=== PATIENT | male | born 1980 | race Caucasian/White ===

== ENCOUNTER 2017-05-04 10:33 | Emergency (ER) | payer OTHER ==
--- NOTE | 2017-05-04 10:52 | EDM.PDOC ---
ED HPI GENERAL MEDICAL PROBLEM - General Chief Complaint: Back Pain or Injury Stated Complaint: BACK PAIN Time Seen by Provider: 05/04/17 10:48 Source of Information: Reports: Patient History Limitations: Reports: No Limitations - History of Present Illness INITIAL COMMENTS - FREE TEXT/NARRATIVE: History of present illness: [36-year-old male comes in complaining of acute back pain. Patient does have a history of back issues that he has had conservative treatment for but now he is unable to sit, standing is painful and patient is having difficulty laying still.] Review of systems: As per history of present illness and below otherwise all systems reviewed and negative. Past medical history: As per history of present illness and as reviewed below otherwise noncontributory. Surgical history: As per history of present illness and as reviewed below otherwise noncontributory. Social history: No reported history of drug or alcohol abuse. Family history: As per history of present illness and as reviewed below otherwise noncontributory. Physical exam: HEENT: Atraumatic, normocephalic, pupils reactive, negative for conjunctival pallor or scleral icterus, mucous membranes moist, throat clear, neck supple, nontender, trachea midline. Lungs: Clear to auscultation, breath sounds equal bilaterally, chest nontender. Heart: S1S2, regular, negative for clicks, rubs, or JVD. Abdomen: Soft, nondistended, nontender. Negative for masses or hepatosplenomegaly. Negative for costovertebral tenderness. Pelvis: Stable nontender. Genitourinary: Deferred. Rectal: Deferred. Extremities: Atraumatic, negative for cords or calf pain. Neurovascular unremarkable. Neuro: Awake, alert, oriented. Cranial nerves II through XII unremarkable. Cerebellum unremarkable. Patient with significant voluntary guarding in the lower back unable to achieve a position of comfort. Patient indicates that he is having some level of radiculopathy down his left leg onto the top of his left foot. Patient indicates he has a known history of disc issues and was seen approximately a year ago here for back pain and problems he obtained resolution and has not had trouble since in the last 12 months. Now he indicates that the pain is worse than it ever been before and it slightly different. Patient declined further diagnostic studies such as x-rays today because of lack of insurance indicated his new insurance will start in June with his new job. Diagnostics: [] Therapeutics: [Toradol, Zofran, Dilaudid, gabapentin] Impression: [Back pain] Plan: [Gabapentin with brief run of Vicodin at bedtime] Definitive disposition and diagnosis as appropriate pending reevaluation and review of above. Back Pain Score (Numeric/FACES): 10 - Related Data Allergies Allergy/AdvReac Type Severity Reaction Status Date / Time No Known Allergies Allergy Verified 11/17/15 14:13 Home Meds: Home Meds Sertraline [Zoloft] 50 mg PO DAILY 09/06/15 [History] Cyclobenzaprine [Flexeril] 10 mg PO TID PRN #30 tablet 05/12/16 [Rx] Hydrocodone/Acetaminophen [Lortab 5-325 mg Tablet] 1 each PO Q6HR PRN #12 tablet 05/12/16 [Rx] Prednisone [IJD: predniSONE] 20 mg PO BID #10 tab 05/12/16 [Rx] Gabapentin [Neurontin] 300 mg PO TID #90 cap 05/04/17 [Rx] Past Medical History HEENT History: Reports: None Cardiovascular History: Reports: None Respiratory History: Reports: None Gastrointestinal History: Reports: None Genitourinary History: Reports: None Musculoskeletal History: Reports: None Neurological History: Reports: None Psychiatric History: Reports: Anxiety Endocrine/Metabolic History: Reports: None Hematologic History: Reports: None Immunologic History: Reports: None Oncologic (Cancer) History: Reports: None Dermatologic History: Reports: None - Infectious Disease History Infectious Disease History: Reports: None - Past Surgical History Musculoskeletal Surgical History: Reports: Other (See Below) Social & Family History - Family History Family Medical History: Noncontributory - Tobacco Use Smoking Status *Q: Former Smoker Second Hand Smoke Exposure: No - Caffeine Use Caffeine Use: Reports: Coffee - Recreational Drug Use Recreational Drug Use: No ED ROS GENERAL - Review of Systems Review Of Systems: See Below (See history of present illness) ED EXAM, GENERAL - Physical Exam Exam: See Below (See history of present illness) Course - Vital Signs Last Recorded V/S: Last Vital Signs Temp 36.4 C 05/04/17 10:46 Pulse 82 05/04/17 10:46 Resp 18 05/04/17 10:46 BP 124/81 05/04/17 10:46 Pulse Ox 96 05/04/17 10:46 - Orders/Labs/Meds Orders: Active Orders 24 hr Category Date Time Status Lumbar Spine 2 or 3V [CR] Stat Exams 05/04/17 12:24 Stop Req Orphenadrine [Norflex] Med 05/04/17 11:00 Active 60 mg IM Q12H Saline Lock Insert [OM.PC] Stat Oth 05/04/17 10:53 Ordered Medication Orders Orphenadrine Citrate (Norflex) 60 mg IM Q12H RITA Last Admin: 05/04/17 11:11 Dose: 60 mg Meds: Medications Generic Name Dose Route Start Last Admin Trade Name Freq PRN Reason Stop Dose Admin Orphenadrine Citrate 60 mg 05/04/17 11:00 05/04/17 11:11 Norflex IM 60 mg Q12H RITA Administration Discontinued Medications Generic Name Dose Route Start Last Admin Trade Name Freq PRN Reason Stop Dose Admin Gabapentin 300 mg 05/04/17 12:49 Neurontin PO 05/04/17 12:50 ONETIME ONE Hydromorphone HCl 1 mg 05/04/17 11:28 05/04/17 11:45 Dilaudid IVPUSH 05/04/17 11:29 1 mg ONETIME ONE Administration Hydromorphone HCl 1 mg 05/04/17 12:24 05/04/17 12:42 Dilaudid IVPUSH 05/04/17 12:25 1 mg ONETIME ONE Administration Ketorolac Tromethamine 30 mg 05/04/17 10:53 05/04/17 11:10 Toradol IVPUSH 05/04/17 10:54 30 mg ONETIME ONE Administration Lorazepam 1 mg 05/04/17 11:28 05/04/17 11:46 Ativan IVPUSH 05/04/17 11:29 1 mg ONETIME ONE Administration Ondansetron HCl 4 mg 05/04/17 10:54 05/04/17 11:11 Zofran IVPUSH 05/04/17 10:55 4 mg ONETIME ONE Administration Ondansetron HCl 4 mg 05/04/17 12:24 05/04/17 12:41 Zofran IVPUSH 05/04/17 12:25 4 mg ONETIME ONE Administration Departure - Departure Time of Disposition: 13:13 Disposition: Home, Self-Care 01 Condition: Good Clinical Impression: Low back pain Qualifiers: Chronicity: acute Back pain laterality: bilateral Sciatica presence: with sciatica Sciatica laterality: sciatica of left side Qualified Code(s): M54.42 - Lumbago with sciatica, left side - Discharge Information Prescriptions: Gabapentin [Neurontin] 300 mg PO TID #90 cap Referrals: PCP,None [Primary Care Provider] - Forms: ED Department Discharge Additional Instructions: The following information is given to patients seen in the emergency department who are being discharged to home. This information is to outline your options for follow-up care. We provide all patients seen in our emergency department with a follow-up referral. The need for follow-up, as well as the timing and circumstances, are variable depending upon the specifics of your emergency department visit. If you don't have a primary care physician on staff, we will provide you with a referral. We always advise you to contact your personal physician following an emergency department visit to inform them of the circumstance of the visit and for follow-up with them and/or the need for any referrals to a consulting specialist. The emergency department will also refer you to a specialist when appropriate. This referral assures that you have the opportunity for follow-up care with a specialist. All of these measure are taken in an effort to provide you with optimal care, which includes your follow-up. Under all circumstances we always encourage you to contact your private physician who remains a resource for coordinating your care. When calling for follow-up care, please make the office aware that this follow-up is from your recent emergency room visit. If for any reason you are refused follow-up, please contact the [facility] Emergency Department at and asked to speak to the emergency department charge nurse. Take medication as directed Follow-up with the primary care provider as discussed Return to ED as needed as discussed [facility] [address] [place] [id number] - My Orders Last 24 Hours: My Active Orders 05/04/17 10:53 Saline Lock Insert [OM.PC] Stat 05/04/17 11:00 Orphenadrine [Norflex] 60 mg IM Q12H 05/04/17 12:24 Lumbar Spine 2 or 3V [CR] Stat - Assessment/Plan Last 24 Hours: My Active Orders 05/04/17 10:53 Saline Lock Insert [OM.PC] Stat 05/04/17 11:00 Orphenadrine [Norflex] 60 mg IM Q12H 05/04/17 12:24 Lumbar Spine 2 or 3V [CR] Stat
[2017-05-04] MEDS ORDERED: Ketorolac 30 MG/ML SDV IVPUSH ONE (10:53)
[2017-05-04] MEDS ORDERED: Ondansetron 4 MG/2 ML SDV IVPUSH ONE ×2 (10:54→12:24)
[2017-05-04] MEDS ORDERED: LORazepam 2 MG/ML SDV IVPUSH ONE (11:28)
[2017-05-04] MEDS ORDERED: HYDROmorphone 2 MG/ML Syringe IVPUSH ONE ×2 (11:28→12:24)
[2017-05-04] MEDS ORDERED: Gabapentin 300 MG Cap PO ONE (12:49)
[2017-05-04 14:39] VITALS: BP 125/89
== END 2017-05-04 14:35 | disposition home or self-care (01) ==
LOC: MW.ED 10:33
DX: M54.42 Lumbago with sciatica, left side (principal); Z79.899 Other long term (current) drug therapy; Z87.891 Personal history of nicotine dependence
CPT/HCPCS: 81001; 96372; 96374; 96375; 96376; 99283; A9270; J1170; J1885; J2060; J2360; J2405; 99284

== ENCOUNTER 2017-12-12 06:58 | Observation (INO) | payer OTHER ==
[2017-12-12] MEDS ORDERED: Cyclobenzaprine 10 MG Tab PO ONE (07:24)
[2017-12-12] MEDS ORDERED: HYDROmorphone 2 MG/ML SDV IM ONE ×2 (07:24→09:04)
[2017-12-12] MEDS ORDERED: HYDROmorphone 1 MG/ML Syringe IM ONE (07:30)
--- NOTE | 2017-12-12 08:03 | EDM.PDOC ---
ED HPI GENERAL MEDICAL PROBLEM - General Chief Complaint: Back Pain or Injury Stated Complaint: BACK PAIN Time Seen by Provider: 12/12/17 07:01 Source of Information: Reports: Patient History Limitations: Reports: No Limitations - History of Present Illness INITIAL COMMENTS - FREE TEXT/NARRATIVE: History of present illness: []Patient has had back pain since 2009, he has had intermittent flares and this morning he was getting out of his office chair and had severe pain like he was hit the back with a baseball bat with pain radiating down his left leg into his foot. He states his foot feels like water pouring over it. Patient had an epidural last week in [place] for chronic low back pain. He's had several in the past but states they usually don't work but he wanted to try again because the pain was unrelenting. It has not given him any relief. Review of systems: As per history of present illness and below otherwise all systems reviewed and negative. Past medical history: As per history of present illness and as reviewed below otherwise noncontributory. Surgical history: As per history of present illness and as reviewed below otherwise noncontributory. Social history: No reported history of drug or alcohol abuse. Family history: As per history of present illness and as reviewed below otherwise noncontributory. Physical exam: General: Well developed, well nourished in NAD HEENT: Atraumatic, normocephalic, pupils reactive, negative for conjunctival pallor or scleral icterus, mucous membranes moist, throat clear, neck supple, nontender, trachea midline. Lungs: Clear to auscultation, breath sounds equal bilaterally, chest nontender. Heart: S1S2, regular, negative for clicks, rubs, or JVD. Abdomen: Soft, nondistended, nontender. Negative for masses or hepatosplenomegaly. Negative for costovertebral tenderness. Pelvis: Stable nontender. Genitourinary: Deferred. Rectal: Deferred. Extremities: Atraumatic, negative for cords or calf pain. Neurovascular unremarkable. Neuro: Awake, alert, oriented. Cranial nerves II through XII unremarkable. Cerebellum unremarkable. Motor and sensory unremarkable throughout. Exam nonfocal. Left patellar reflex in tact, moves toes. Diagnostics: [] Therapeutics: []Morphine, Toradol, Flexeril, Dilaudid with minimal improvement, dexamethasone 1 dose given Impression: []Acute back pain with left-sided sciatica Plan: []Admit for pain control Dr. Yang he accepts, MRI has been ordered Definitive disposition and diagnosis as appropriate pending reevaluation and review of above. Left Low Back Pain Score (Numeric/FACES): 10 - Related Data Allergies Allergy/AdvReac Type Severity Reaction Status Date / Time No Known Allergies Allergy Verified 12/12/17 10:44 Home Meds: Home Meds Sertraline [Zoloft] 50 mg PO BEDTIME 09/06/15 [History] Cyclobenzaprine [Flexeril] 10 mg PO TID PRN #30 tablet 05/12/16 [Rx] Diazepam [Valium] 5 mg PO DAILY PRN 12/12/17 [History] Past Medical History HEENT History: Reports: None Cardiovascular History: Reports: None Respiratory History: Reports: None Gastrointestinal History: Reports: None Genitourinary History: Reports: None Musculoskeletal History: Reports: Back Pain, Chronic Neurological History: Reports: None Psychiatric History: Reports: Anxiety Endocrine/Metabolic History: Reports: None Hematologic History: Reports: None Immunologic History: Reports: None Oncologic (Cancer) History: Reports: None Dermatologic History: Reports: None - Infectious Disease History Infectious Disease History: Reports: None - Past Surgical History Musculoskeletal Surgical History: Reports: Other (See Below) Social & Family History - Family History Family Medical History: Noncontributory - Tobacco Use Smoking Status *Q: Never Smoker - Caffeine Use Caffeine Use: Reports: None - Recreational Drug Use Recreational Drug Use: No ED ROS GENERAL - Review of Systems Review Of Systems: See Below (See history of present illness) ED EXAM,LOWER BACK PAIN/INJURY - Physical Exam Exam: See Below (See history of present illness) Course - Vital Signs Last Recorded V/S: Last Vital Signs Temp 96.7 F 12/12/17 10:11 Pulse 94 12/12/17 10:11 Resp 16 12/12/17 10:11 BP 127/76 12/12/17 10:11 Pulse Ox 93 L 12/12/17 10:11 - Orders/Labs/Meds Orders: Active Orders 24 hr Category Date Time Status Sodium Chloride 0.9% [Saline Flush] Med 12/12/17 08:04 Active 10 ml FLUSH ASDIRECTED PRN Sodium Chloride 0.9% [Saline Flush] Med 12/12/17 08:04 Active 2.5 ml FLUSH ASDIRECTED PRN Saline Lock Insert [OM.PC] Stat Oth 12/12/17 08:03 Ordered Medication Orders Sodium Chloride (Saline Flush) 10 ml FLUSH ASDIRECTED PRN PRN Reason: Keep Vein Open Last Admin: 12/12/17 08:17 Dose: 10 ml Sodium Chloride (Saline Flush) 2.5 ml FLUSH ASDIRECTED PRN PRN Reason: Keep Vein Open Last Admin: 12/12/17 08:17 Dose: 2.5 ml Meds: Medications Generic Name Dose Route Start Last Admin Trade Name Freq PRN Reason Stop Dose Admin Sodium Chloride 10 ml 12/12/17 08:04 12/12/17 08:17 Saline Flush FLUSH 10 ml ASDIRECTED PRN Administration Keep Vein Open Sodium Chloride 2.5 ml 12/12/17 08:04 12/12/17 08:17 Saline Flush FLUSH 2.5 ml ASDIRECTED PRN Administration Keep Vein Open Discontinued Medications Generic Name Dose Route Start Last Admin Trade Name Freq PRN Reason Stop Dose Admin Cyclobenzaprine HCl 10 mg 12/12/17 07:24 12/12/17 07:39 Flexeril PO 12/12/17 07:25 10 mg ONETIME ONE Administration Dexamethasone 10 mg 12/12/17 09:04 12/12/17 09:14 Dexamethasone IVPUSH 12/12/17 09:05 10 mg ONETIME ONE Administration Diazepam 5 mg 12/12/17 08:04 12/12/17 08:15 Valium IV 12/12/17 08:05 5 mg ONETIME ONE Administration Hydromorphone HCl 1 mg 12/12/17 07:24 12/12/17 07:39 Dilaudid IM 12/12/17 07:25 Not Given ONETIME ONE Hydromorphone HCl 1 mg 12/12/17 07:30 12/12/17 07:38 Dilaudid IM 12/12/17 07:31 1 mg ONETIME ONE Administration Hydromorphone HCl 1 mg 12/12/17 09:04 12/12/17 09:14 Dilaudid IM 12/12/17 09:05 Not Given ONETIME ONE Hydromorphone HCl 1 mg 12/12/17 09:06 12/12/17 09:14 Dilaudid IVPUSH 12/12/17 09:07 1 mg ONETIME ONE Administration Ketorolac Tromethamine 30 mg 12/12/17 09:04 12/12/17 09:14 Toradol IVPUSH 12/12/17 09:05 30 mg ONETIME ONE Administration Morphine Sulfate 4 mg 12/12/17 08:04 Morphine IVPUSH 12/12/17 23:59 Q2H PRN Pain Morphine Sulfate Confirm 12/12/17 08:11 12/12/17 08:16 Morphine Administered 12/12/17 08:12 Not Given Dose 4 mg .ROUTE .STK-MED ONE Morphine Sulfate 4 mg 12/12/17 08:15 12/12/17 08:16 Morphine IVPUSH 12/12/17 08:16 4 mg ONETIME ONE Administration Morphine Sulfate 4 mg 12/12/17 09:00 12/12/17 09:06 Morphine IVPUSH 12/12/17 09:01 Not Given ONETIME ONE Departure - Departure Time of Disposition: 10:30 Disposition: Refer to Observation Condition: Fair Clinical Impression: Acute left-sided back pain with sciatica - Discharge Information - My Orders Last 24 Hours: My Active Orders 12/12/17 08:03 Saline Lock Insert [OM.PC] Stat 12/12/17 08:04 Sodium Chloride 0.9% [Saline Flush] 10 ml FLUSH ASDIRECTED PRN Sodium Chloride 0.9% [Saline Flush] 2.5 ml FLUSH ASDIRECTED PRN - Assessment/Plan Last 24 Hours: My Active Orders 12/12/17 08:03 Saline Lock Insert [OM.PC] Stat 12/12/17 08:04 Sodium Chloride 0.9% [Saline Flush] 10 ml FLUSH ASDIRECTED PRN Sodium Chloride 0.9% [Saline Flush] 2.5 ml FLUSH ASDIRECTED PRN
[2017-12-12] MEDS ORDERED: Sodium Chloride 0.9% 2.5 ML Syringe FLUSH PRN (08:04)
[2017-12-12] MEDS ORDERED: Diazepam 5 MG/ML 10 ML Vial MDV IV ONE (08:04)
[2017-12-12] MEDS ORDERED: Sodium Chloride 0.9% 10 ML Syringe FLUSH PRN (08:04)
[2017-12-12] MEDS ORDERED: Morphine 4 MG/ML Syringe IVPUSH PRN (08:04)
[2017-12-12] MEDS ORDERED: Morphine 2 MG/ML Syringe ONE (08:11)
[2017-12-12] MEDS ORDERED: Morphine 2 MG/ML Syringe IVPUSH ONE ×2 (08:15→09:00)
[2017-12-12] MEDS ORDERED: Ketorolac 30 MG/ML SDV IVPUSH ONE (09:04)
[2017-12-12] MEDS ORDERED: Dexamethasone 10 MG/ML SDV IVPUSH ONE (09:04)
[2017-12-12] MEDS ORDERED: HYDROmorphone 1 MG/ML Syringe IVPUSH ONE (09:06)
--- NOTE | 2017-12-12 10:08 | MR ---
EXAMINATION: MRI lumbar spine without contrast HISTORY: Pain COMPARISON: None TECHNIQUE: Multiplanar and multisequence imaging obtained of the lumbar spine without contrast. Motio n artifact is noted due to pain. FINDINGS: The lumbar spinal alignment is normal. The vertebral body heights appear maintained. Mild e ndplate signal changes noted at L5-S1. There is no suspicious bone marrow signal. The visualized retr operitoneal structures are grossly unremarkable. SI joints are symmetric. T12-L4: Essentially unremarkable L4-L5: Minimal diffuse disc bulge without significant spinal canal or neural foraminal stenosis. L5-S1: Moderate diffuse disc bulge with an annular tear without significant spinal canal stenosis. Mo derate left and [id number] right neural foraminal stenosis. IMPRESSION: 1. Moderate diffuse disc bulge at L5-S1 with an annular tear. Moderate left and [id number] righ t neural foraminal stenosis.
[2017-12-12 10:27] VITALS: BP 127/76
[2017-12-12] MEDS ORDERED: Acetaminophen 325 MG Tab PO PRN (11:50)
[2017-12-12] MEDS ORDERED: Ondansetron 4 MG/2 ML SDV IVPUSH PRN (11:50)
--- NOTE | 2017-12-12 11:54 | PCM.HP ---
H&P History of Present Illness - General Date of Service: 12/12/17 Admit Problem/Dx: Admission Diagnosis/Problem Admission Diagnosis/Problem Sciatica of left side associated with disorder of lumbar spine Source of Information: Patient History Limitations: Reports: No Limitations - History of Present Illness Initial Comments - Free Text/Narative: This 37 year old male with pmh of chronic back pain with acute flares presented to the ED today with complaints of a acute back pain flare. He reports he was in [place] last week and received an epidural for his back pain. He has received a number of these in the past and they typically don't work well for him. He felt ok over the weekend and then went to work today. He was sitting in his chair, he moved to stand up and had instant pain in his low back shooting down the back of his left leg. He reports it was sudden and severe prompting him to come to the ED. He reports he typically takes Naproxen and Flexeril at home for acute flares and occassionally relies on Chitina when very severe. He also typically applies heat PRN. He was previously on Meloxicam which helped a lot, but his provider stopped this and he was unsure why. He reports "I take too much Naproxen a day to help the pain, I know that." He denies heartburn or abdominal pain. No black or bloody BMs. He reports Flexeril makes him nearly non -functional at work and would like to attempt a lower dose if possible, form the 10 mg TID. He denies any fevers, chills, URI symptoms. No palpitations or SOB. NO chest pain or abdominal pain. He reports some urine retention possibly, he reports feeling like he has to go but only a small amount comes out, no dysuria. Last BM was yesterday. No constipation. He denies tobacco use, recreational drug use and only social alcohol use, maybe once a month. He has seen multiple specialist since he started having chronic back pain after an injury in 2009. He has been to Physical therapy and pain management specialists as well. In the ED no labwork obtained. VS stable. He was given Dilaudid IM along with Toradol, Dexamethasone and Flexeril. MRI of lumbar spine revealed moderate diffuse disk bulge L5-S1 with annular tear along with moderate L and mild to moderate R neural foraminal stenosis. He will be admitted observation for acute on chronic low back pain, intractable pain. Left Low Back Pain Score (Numeric/FACES): 10 - Related Data Allergies/Adverse Reactions: Allergies Allergy/AdvReac Type Severity Reaction Status Date / Time No Known Allergies Allergy Verified 12/12/17 10:44 Home Medications: Home Meds Sertraline [Zoloft] 50 mg PO BEDTIME 09/06/15 [History] Cyclobenzaprine [Flexeril] 10 mg PO TID PRN #30 tablet 05/12/16 [Rx] Diazepam [Valium] 5 mg PO DAILY PRN 12/12/17 [History] Past Medical History HEENT History: Reports: None Cardiovascular History: Reports: None. Denies: Afib, Blood Clots/VTE/DVT, High Cholesterol, Hypertension Respiratory History: Reports: None. Denies: Asthma, COPD, SOB Gastrointestinal History: Reports: None. Denies: GERD, GI Bleed Genitourinary History: Reports: None. Denies: Chronic Renal Insuffiency, Urinary Incontinence Musculoskeletal History: Reports: Back Pain, Chronic Other Musculoskeletal History: Herniated disk L4, Herniated L5 (2009) Neurological History: Reports: None. Denies: CVA, Headaches, Chronic, Head Trauma, TIA Psychiatric History: Reports: Anxiety (intermittent, has Valium PRN) Endocrine/Metabolic History: Reports: None. Denies: Diabetes, Type II Hematologic History: Reports: None Immunologic History: Reports: None Oncologic (Cancer) History: Reports: None Dermatologic History: Reports: None Other Dermatologic History: Rosacea - Infectious Disease History Infectious Disease History: Reports: None - Past Surgical History Neurological Surgical History: Reports: None Musculoskeletal Surgical History: Reports: Other (See Below) Social & Family History - Family History Family Medical History: Noncontributory - Tobacco Use Smoking Status *Q: Never Smoker Second Hand Smoke Exposure: No - Caffeine Use Caffeine Use: Reports: None - Alcohol Use Alcohol Use Frequency: Rarely, Socially - Recreational Drug Use Recreational Drug Use: No - Living Situation & Occupation Living situation: Reports: Occupation: Employed H&P Review of Systems - Review of Systems: Review Of Systems: See Below General: Reports: No Symptoms. Denies: Fever, Chills, Malaise, Weakness, Fatigue HEENT: Reports: No Symptoms. Denies: Headaches, Sinus Congestion, Sore Throat, Vertigo Pulmonary: Reports: No Symptoms. Denies: Shortness of Breath Cardiovascular: Reports: No Symptoms. Denies: Chest Pain Gastrointestinal: Reports: No Symptoms. Denies: Abdominal Pain, Black Stool, Bloody Stool, Distension, Nausea, Stool Incontinence, Vomiting Genitourinary: Reports: Retention. Denies: Dysuria, Frequency Musculoskeletal: Reports: Back Pain (low back pain which radiates down back o L leg to approximately posterior/medial knee. [place] as though L foot was in cold water, but now better. ) Skin: Reports: No Symptoms Psychiatric: Reports: No Symptoms Hematologic/Lymphatic: Reports: No Symptoms Immunologic: Reports: No Symptoms Exam - Exam Exam: See Below - Vital Signs Vital Signs: Last Vital Signs Temp 96.7 F 12/12/17 10:11 Pulse 94 12/12/17 10:11 Resp 16 12/12/17 10:11 BP 127/76 12/12/17 10:11 Pulse Ox 93 L 12/12/17 10:11 Weight: 85.304 kg - Exam General: Alert, Oriented, Cooperative HEENT: Conjunctiva Clear, Mucosa Moist & [place], Pupils Equal, Pupils Reactive Neck: Supple, Trachea Midline, 2 Cardiovascular: Regular Rate, Regular Rhythm GI/Abdominal Exam: Normal Bowel Sounds, Soft, Non-Tender, No Organomegaly, No Distention, No Abnormal Bruit, No Mass, Pelvis Stable Back Exam: Normal Inspection, Decreased Range of Motion (due to pain. Slight difficulty with bilateral straight leg raise, causing worsening muscle pain to lower back. ), Muscle Spasm, Other (Epidural puncture site slight healing bruising. No edema.). No: CVA Tenderness (L), CVA Tenderness (R), Paraspinal Tenderness, Vertebral Tenderness Extremities: Normal Inspection, Normal Range of Motion, Non-Tender, No Pedal Edema Neurological: Reflexes Equal Bilateral, Strength Equal Bilateral, Normal Gait Neuro Extensive - Mental Status: Alert, Oriented x3 Neuro Extensive - Motor, Sensory, Reflexes: CN II-XII Intact, Normal Gait, Normal Reflexes Psychiatric: Alert, Normal Affect, Normal Mood *Q Meaningful Use (ADM) - VTE Risk Assess *Q Each Risk Factor Represents 1 Point: None Total Score 1 Point Risk Factors: 0 Each Risk Factor Represents 2 Points: None Total Score 2 Point Risk Factors: 0 Each Risk Factor Represents 3 Points: None Total Score 3 Point Risk Factors: 0 Each Risk Factor Represents 5 Points: None Total Score 5 Point Risk Factors: 0 Venous Thromboembolism Risk Factor Score *Q: 0 - Problem List (1) Acute left-sided back pain with sciatica SNOMED Code(s): 456622571 ICD Code: M54.42 - LUMBAGO WITH SCIATICA, LEFT SIDE Status: Acute Current Visit: Yes (2) Anxiety SNOMED Code(s): 97551687 ICD Code: F41.9 - ANXIETY DISORDER, UNSPECIFIED Status: Chronic Current Visit: Yes (3) Chronic back pain SNOMED Code(s): 211385217 ICD Code: M54.9 - DORSALGIA, UNSPECIFIED; G89.29 - OTHER CHRONIC PAIN Status: Acute Current Visit: Yes Qualifiers: Back pain location: low back pain Back pain laterality: bilateral Problem List Initiated/Reviewed/Updated: Yes Orders Last 24hrs: Active Orders 24 hr Category Date Time Status Patient Status [ADT] Stat ADT 12/12/17 09:05 Active Intake and Output [RC] QSHIFT Care 12/12/17 11:50 Ordered Oxygen Therapy [RC] PRN Care 12/12/17 11:50 Ordered Up With Assistance [RC] ASDIRECTED Care 12/12/17 11:50 Ordered VTE/DVT Education [RC] PER UNIT ROUTINE Care 12/12/17 11:50 Ordered Vital Signs [RC] Q4H Care 12/12/17 11:50 Ordered Regular Diet [DIET] Diet 12/12/17 Lunch Ordered BASIC METABOLIC PANEL,BMP [CHEM] Routine Lab 12/12/17 11:50 Ordered CBC WITH AUTO DIFF [HEME] Routine Lab 12/12/17 11:50 Ordered Acetaminophen [Tylenol] Med 12/12/17 11:50 Ordered 650 mg PO Q4H PRN Cyclobenzaprine [Flexeril] Med 12/12/17 14:00 Ordered 10 mg PO TID Enoxaparin [Lovenox] Med 12/12/17 12:00 Ordered 40 mg SUBCUT Q24H Ketorolac [Toradol] Med 12/12/17 15:00 Ordered 30 mg IVPUSH Q6H Ondansetron [Zofran] Med 12/12/17 11:50 Ordered 4 mg IVPUSH Q4H PRN Sodium Chloride 0.9% [Saline Flush] Med 12/12/17 08:04 Active 10 ml FLUSH ASDIRECTED PRN Sodium Chloride 0.9% [Saline Flush] Med 12/12/17 08:04 Active 2.5 ml FLUSH ASDIRECTED PRN Saline Lock Insert [OM.PC] Stat Oth 12/12/17 08:03 Ordered Resuscitation Status Routine Resus Stat 12/12/17 11:50 Ordered Medication Orders Acetaminophen (Tylenol) 650 mg PO Q4H PRN PRN Reason: Pain (mild 1-3) Cyclobenzaprine HCl (Flexeril) 10 mg PO TID RITA Enoxaparin Sodium (Lovenox) 40 mg SUBCUT Q24H RITA Ketorolac Tromethamine (Toradol) 30 mg IVPUSH Q6H RITA Stop: 12/13/17 09:01 Ondansetron HCl (Zofran) 4 mg IVPUSH Q4H PRN PRN Reason: Nausea Sodium Chloride (Saline Flush) 10 ml FLUSH ASDIRECTED PRN PRN Reason: Keep Vein Open Last Admin: 12/12/17 08:17 Dose: 10 ml Sodium Chloride (Saline Flush) 2.5 ml FLUSH ASDIRECTED PRN PRN Reason: Keep Vein Open Last Admin: 12/12/17 08:17 Dose: 2.5 ml Assessment/Plan Comment:: This 37 raffaele old male admitted with acute on chronic low back pain with sciatica 1. Acute exacerbation of chronic back pain: Will treat with Toradol 30 mg IV Q6h IV x 4 doses and re-evaluate in am, Flexeril (pt requests trying lower dose of 5 mg) TID PO scheduled, and Chitina PRN for severe pain only. Heat and Ice as needed. Patient is up standing in room per self. May consider another dose of Dexamethasone in am. Will re-evaluate. 2. Anxiety: reports fairly non-existent. Only when he has increase with back pain. Doesn't take anything regularly for this. Feels stable today. VTE prophylaxis: SCDs and ambulation Dispo: 1-2 days pending improvement.
[2017-12-12] MEDS ORDERED: Enoxaparin 40 MG/0.4 ML Syringe SUBCUT SCH (12:00)
[2017-12-12] MEDS ORDERED: Pantoprazole 40 MG Vial IVPUSH ONE (12:22)
[2017-12-12 12:37] LABS: CHLORIDE,CL 100 mmol/L (98-107); SODIUM,NA 137 mmol/L (136-148)
[2017-12-12] MEDS ORDERED: Acetaminophen/HYDROcodone 325-5 MG Tab PO PRN (12:49)
[2017-12-12] MEDS ORDERED: HYDROmorphone 2 MG/ML SDV IVPUSH PRN (12:51)
[2017-12-12] MEDS ORDERED: Cyclobenzaprine 10 MG Tab PO SCH ×2 (14:00)
[2017-12-12] MEDS ORDERED: Ketorolac 30 MG/ML SDV IVPUSH SCH (15:00)
[2017-12-12] MEDS ORDERED: Pregabalin 50 MG Cap PO SCH (15:38)
[2017-12-12] MEDS ORDERED: Sertraline 100 MG Tab PO SCH (21:00)
[2017-12-13] MEDS ORDERED: Pantoprazole 40 MG Tab.CR PO SCH (07:30)
== END 2017-12-12 18:02 | disposition home or self-care (01) ==
LOC: MW.ED 06:58 → MW.MS 09:05
PROVIDERS: ADMIT Internal Medicine; ATTEND Internal Medicine
DX: G89.29 Other chronic pain (principal); M54.42 Lumbago with sciatica, left side; M48.07 Spinal stenosis, lumbosacral region; F41.9 Anxiety disorder, unspecified; Z79.899 Other long term (current) drug therapy
CPT/HCPCS: 36415; 51798; 72158; 80048; 81001; 85025; 96372; 96374; 96375; 96376; 99285; A9270; G0378; J1100; J1170; J1650; J1885; J2270; C9113

== ENCOUNTER 2018-02-17 12:24 | Emergency (ER) | payer OTHER ==
[2018-02-17] MEDS ORDERED: LORazepam 2 MG/ML SDV IM ONE (12:32)
--- NOTE | 2018-02-17 12:39 | EDM.PDOCBH ---
<Bailey Branham - Last Filed: 02/17/18 13:12> ED HPI GENERAL MEDICAL PROBLEM - General Chief Complaint: Behavioral/Psych Stated Complaint: PT SPOKE TO NURSE Time Seen by Provider: 02/17/18 12:32 Source of Information: Reports: Patient History Limitations: Reports: No Limitations - History of Present Illness INITIAL COMMENTS - FREE TEXT/NARRATIVE: HISTORY AND PHYSICAL: []37-year-old male presenting with panic attack History of Present Illness: []Has long history of having panic disorder he did speak with his physician this morning a police arrived at his house to have a welfare check and transported him to the emergency department Patient states that his psychiatrist had reduced his Zoloft from 150mg-to 100mg and he had taken this for 3 days he did not feel well so he over the last 2 days has increased it back to 150mg. Review of Systems: As per history of present illness and below otherwise all systems reviewed and negative. Past medical history: As per history of present illness and as reviewed below otherwise noncontributory. Surgical history: As per history of present illness and as reviewed below otherwise noncontributory. Social history: No reported history of drug or alcohol abuse. Family history: As per history of present illness and as reviewed below otherwise noncontributory. Physical exam: Alert gentleman who is pacing in the room. is cooperative with examination. Shaking on examination. HEENT: Atraumatic, normocehpalic, pupils reactive, negative for conjunctival pallor or scleral icterus, mucous membranes moist, throat clear, neck supple, nontender, trachea midline. Lungs: Clear to auscultation, breath sounds equal bilaterally, chest non tender. Heart: S1S2, regular, negative for clicks, rubs, or JVD. Abdomen: Soft, nondistended, nontender. Negative for masses or hepatossplenmegaly. Negative for costovertebral tenderness. Pelvis: Stable nontender. Genitourinary: Deferred. Rectal: Deferred Extremities: Atraumatic, negative for cords or calf pain. Neurovascular unremarkable. Neuro: Awake, alert, oriented. Cranial nerves II through XII unremarkable. Cerebellum unremarkable. Motor and sensory unremarkable throughout. Exam nonfocal. Is improved since the Ativan has been given to him we'll give him by mouth Ativan and discharged him to home. Diagnostics: [] Therapeutics: []Ativan 1 mg IM Impression: []Panic disorder Plan: []Discharged home Follow up with your health provider to adjust your medications Return to the emergency room as directed and discussed Definitive disposition and diagnosis as appropriate pending reevaluation and review of above. - Related Data Allergies Allergy/AdvReac Type Severity Reaction Status Date / Time No Known Allergies Allergy Verified 12/12/17 10:44 Home Meds: Home Meds Sertraline [Zoloft] 50 mg PO BEDTIME 09/06/15 [History] Cyclobenzaprine [Flexeril] 5 mg PO TID #30 tablet 12/12/17 [Rx] Pregabalin [Lyrica] 50 mg PO TID #40 cap 12/12/17 [Rx] diazePAM [Valium] 5 mg PO DAILY PRN 12/12/17 [History] predniSONE [Prednisone] 50 mg PO DAILY #4 tablet 12/12/17 [Rx] Past Medical History HEENT History: Reports: None Cardiovascular History: Reports: None. Denies: Afib, Blood Clots/VTE/DVT, High Cholesterol, Hypertension Respiratory History: Reports: None. Denies: Asthma, COPD, SOB Gastrointestinal History: Reports: None. Denies: GERD, GI Bleed Genitourinary History: Reports: None. Denies: Chronic Renal Insuffiency, Urinary Incontinence Musculoskeletal History: Reports: Back Pain, Chronic Other Musculoskeletal History: Herniated disk L4, Herniated L5 (2009) Neurological History: Reports: None. Denies: CVA, Headaches, Chronic, Head Trauma, TIA Psychiatric History: Reports: Anxiety (intermittent, has Valium PRN) Endocrine/Metabolic History: Reports: None. Denies: Diabetes, Type II Hematologic History: Reports: None Immunologic History: Reports: None Oncologic (Cancer) History: Reports: None Dermatologic History: Reports: None Other Dermatologic History: Rosacea - Infectious Disease History Infectious Disease History: Reports: None - Past Surgical History Neurological Surgical History: Reports: None Musculoskeletal Surgical History: Reports: Other (See Below) Social & Family History - Family History Family Medical History: Noncontributory - Caffeine Use Caffeine Use: Reports: None - Living Situation & Occupation Living situation: Reports: Occupation: Employed ED ROS GENERAL - Review of Systems Review Of Systems: ROS reveals no pertinent complaints other than HPI. ED EXAM, BEHAVIORAL HEALTH - Physical Exam Exam: See Below (see dictation) COURSE, BEHAVIORAL HEALTH COMP - Course Vital Signs: Last Vital Signs Temp 36.6 C 02/17/18 12:28 Pulse 96 02/17/18 12:28 Resp 20 02/17/18 12:28 BP 150/99 H 02/17/18 12:28 Pulse Ox 96 02/17/18 12:28 Orders, Labs, Meds: Medications Discontinued Medications Generic Name Dose Route Start Last Admin Trade Name Stephanie PRN Reason Stop Dose Admin Lorazepam 1 mg 02/17/18 12:32 02/17/18 12:41 Ativan IM 02/17/18 12:33 1 mg ONETIME ONE Administration Lorazepam 1 mg 02/17/18 13:07 02/17/18 13:14 Ativan PO 02/17/18 13:08 1 mg ONETIME ONE Administration Departure - Departure Time of Disposition: 13:13 Disposition: Home, Self-Care 01 Condition: Good Clinical Impression: Panic disorder, Anxiety - Discharge Information *PRESCRIPTION DRUG MONITORING PROGRAM REVIEWED*: Not Applicable *COPY OF PRESCRIPTION DRUG MONITORING REPORT IN PATIENT GINGER: Not Applicable Instructions: Generalized Anxiety Disorder, Adult, Panic Attack, [id number] Referrals: PCP,None [Primary Care Provider] - Forms: ED Department Discharge Additional Instructions: The following information is given to patients seen in the emergency department who are being discharged to home. This information is to outline your options for follow-up care. We provide all patients seen in our emergency department with a follow-up referral. The need for follow-up, as well as the timing and circumstances, are variable depending upon the specifics of your emergency department visit. If you don't have a primary care physician on staff, we will provide you with a referral. We always advise you to contact your personal physician following an emergency department visit to inform them of the circumstance of the visit and for follow-up with them and/or the need for any referrals to a consulting specialist. The emergency department will also refer you to a specialist when appropriate. This referral assures that you have the opportunity for followup care with a specialist. All of these measure are taken in an effort to provide you with optimal care, which includes your followup. Under all circumstances we always encourage you to contact your private physician who remains a resource for coordinating your care. When calling for followup care, please make the office aware that this follow-up is from your recent emergency room visit. If for any reason you are refused follow-up, please contact the [facility] emergency department at and asked to speak to the emergency department charge nurse. Discharged home Follow up with your health provider to adjust your medications Return to the emergency room as directed and discussed <Irene Moses - Last Filed: 02/17/18 15:34> ED HPI GENERAL MEDICAL PROBLEM - History of Present Illness INITIAL COMMENTS - FREE TEXT/NARRATIVE: Please add that the patient nursing and the mid level that he is not suicidal or homicidal. He just feels very anxious.
[2018-02-17 12:55] VITALS: BP 150/99
[2018-02-17] MEDS ORDERED: LORazepam 1 MG Tab PO ONE (13:07)
== END 2018-02-17 13:35 | disposition home or self-care (01) ==
LOC: MW.ED 12:24
DX: F41.0 Panic disorder [episodic paroxysmal anxiety] (principal); Z79.899 Other long term (current) drug therapy
CPT/HCPCS: 96372; 99283; A9270; J2060